=== PATIENT | female | born 2000 | race Caucasian/White ===

== ENCOUNTER 2019-05-01 03:36 | Inpatient (IN) ==
[2019-05-04] MEDS ORDERED: OXYTOCIN/DEXTROSE 5%-WATER 30 UNITS/500 ML BAG IV ONE (00:34)
[2019-05-04] MEDS ORDERED: ONDANSETRON 4 MG TAB.RAPDIS PO PRN (00:34)
--- NOTE | 2019-05-04 01:06 | HP ---
Chief Complaint - Chief Complaint Date of Service: 05/04/19 Time of Service: 00:55 Chief Complaint: elective induction of labor History of Present Illness: 19 yo at 40 1/7 weeks admitted for elective induction of labor. This complicated by anemia, THC use, smoker, and insufficient PNC. Rh positive Rubella immune GBS negative Medical History (Last Reviewed 05/04/19 @ 00:58 by Missael Trimble DO) Tobacco abuse (Chronic) Anemia Onset Date: 06/14/17 w/ Body piercing Onset Date: Unknown Dysmenorrhea Onset Date: 06/13/12 Hirsuties Onset Date: 06/13/12 Grade 1, Minor Tattoos Onset Date: Unknown Hemorrhoids Onset Date: ~2017 Scoliosis Onset Date: Unknown UTI (urinary tract infection), uncomplicated Onset Date: 04/12/17 Surgical History: Surgical History (Last Reviewed 05/04/19 @ 00:58 by Missael Trimble DO) History of tonsillectomy Onset Date: ~11/2011 [place] teeth extracted Onset Date: Unknown Family History: Family History (Last Reviewed 05/04/19 @ 00:58 by Missael Trimble DO) Mother Asthma RA (rheumatoid arthritis) Grandfather COPD (chronic obstructive pulmonary disease) Maternal Grandmother Diabetes maternal Hypertension maternal Hyperlipemia maternal Social History: (Last Updated 04/28/19 @ 13:30 by Missael Trimble DO) Social History: adopted: No Marital status: Single household members: family number of children: 1 current occupational status: employed current occupation: [employer] current occupational exposures/hazards: No Highest education level completed: 11th grade Sexually Active: Yes Service: No Tobacco: Smoking Status: Current every day smoker tobacco type: cigarettes Smoking cigarettes per day: 7 Alcohol: alcohol intake: current alcohol intake frequency: holiday/special occasion details: No alcohol since + UPT Substance Use: substance use type: marijuana Dietary Habits: caffeine: Yes caffeine comment: 1-2/day Exercise: Physical activity type: none frequency: does not exercise Daly/[facility]: agree to transfusion: Yes Review Of Systems (GEN) - Review of Systems Generalized/Overall Review: Present: No Symptoms Reported EENTM: Present: No Symptoms Reported Respiratory: Present: No Symptoms Reported Cardiac: Present: No Symptoms Reported Abdominal: Present: Other - irregular contractions Genitourinary: Present: No Symptoms Reported Musculoskeletal: Present: No Symptoms Reported Neurological: Present: No Symptoms Reported Skin: Present: No Symptoms Reported Endocrine: Present: No Symptoms Reported Allergies/Adverse Reactions: Allergies Allergy/AdvReac Type Severity Reaction Status Date / Time No Known Allergies Allergy Verified 04/28/19 13:05 Home Medications: HOME MEDICATIONS Vits96/Iron Fum/Folic [ S] 1 cap PO DAILY 09/05/17 [Last Taken 05/03/19] Ferrous Sulfate [Iron] 325 mg PO DAILY 09/12/17 [Last Taken 05/03/19] ascorbic acid (vitamin C) 500 mg tablet 500 mg PO DAILY 11/28/18 [Last Taken 05/03/19] Exam - Exam Vital Signs: Vital Signs - Last Taken Temp 37.0 C 05/04/19 00:45 Pulse 102 H 05/04/19 00:45 Resp 16 05/04/19 00:45 BP 117/63 05/04/19 00:45 Pulse Ox 100 05/04/19 00:45 Constitutional: Present: Alert, Oriented x3, Cooperative, No distress ENT Exam: Present: hearing grossly normal Neck: Absent: thyromegaly Breasts: Present: Exam deferred Respiratory: Present: lungs clear, no respiratory distress Cardiovascular/Chest: Present: regular rate, rhythm Abdomen: Present: soft, nontender, no rebound tenderness, other - gravid /Rectal: Present: Other - cervix - 2/75/-2 Extremity: Present: no pedal edema, no calf tenderness Skin Exam: Present: normal color, warm/dry, no cyanosis Neurologic: Present: alert, normal mood/affect, oriented x 3 Appearance: Present: appropriate appearance, appropriate insight Eye contact: Present: cooperative, good eye contact Thoughts: Present: normal thought pattern, normal mood /affect Assessment/Plan - Assessment/Plan (1) Elective induction of labor planned Assessment: Admit for pitocin induction of labor. Epidural PRN. Problem: Acute (2) Anemia Problem: Acute Qualifiers: Anemia type: iron deficiency Iron deficiency anemia type: inadequate dietary iron intake Qualified Code(s): D50.8 - Other iron deficiency anemias (3) History of marijuana use Problem: Acute (4) Insufficient care Problem: Acute Qualifiers: Trimester: third trimester Qualified Code(s): O09.33 - Supervision of with insufficient care, third trimester (5) Tobacco abuse Problem: Chronic
[2019-05-04] MEDS: DEXTROSE 5%-LACTATED RINGERS 1,000 ML IV PRN ×2 (01:14→08:32)
[2019-05-04 02:08] LABS: Cocaine Ur Negative (NEGATIVE); Urine Barbiturate Negative (NEGATIVE); Urine Benzodiazepines Negative (NEGATIVE); Urine Opiates Negative (NEGATIVE); Urine PCP Negative (NEGATIVE)
[2019-05-04 02:11] LABS: Urine THC Positive (NEGATIVE)
--- NOTE | 2019-05-04 04:32 | PN ---
Progess Note - Interim Date: 05/04/19 Time: 04:31 Narrative: 05/04/19 04:31 Patient rating her contractions as mild to moderate. Vital signs stable. Pitocin at 2 mu/min. FHT: 130 baseline, reassuring contractions q 2-3 min Cervix: 3/80/-2, AROM-clear Impression: Intrauterine at 40 1/7 weeks, elective induction of labor. Plan: Continue present plan
[2019-05-04] MEDS: RINGER'S SOLUTION,LACTATED 1,000 ML IV ONE ×2 (07:21→14:30)
[2019-05-04] MEDS ORDERED: BUPIVACAINE HCL/0.9 % NACL/PF 250 ML EP PRN (07:35)
[2019-05-04] MEDS ORDERED: NALOXONE HCL 1 MG/1 ML SYRG IV PRN (07:35)
[2019-05-04] MEDS ORDERED: ONDANSETRON HCL/PF 2 MG/ML VIAL IV PRN ×2 (07:35→15:31)
[2019-05-04] MEDS ORDERED: BUPIVACAINE HCL/PF 30 ML VIAL EP SCH (07:45)
--- NOTE | 2019-05-04 07:56 | PN ---
Progess Note - Interim Date: 05/04/19 Time: 07:40 Narrative: 05/04/19 07:40 Pt had spontaneous deceleration for 11 minutes with a 3 min toñito in the 60's and a few sporadic 10-15 sec returns to baseline. Pitocin at 2 mu/min was turned off within 1st 1.5 min. In addition, position changes were made, IV fluid bolus and O2 were given, and internals were placed. FHT now 120 bpm with moderate variability, accelerations, and occasional mild variable decelerations with contractions. Cervix 5/80/-2 Contractions irreg 1-4 min with most 2-3 min apart. IMPRESSION: 40 1/7 wk IUP in active labor with possible intermittently compressed cord. PLAN: OR crew called in on standby. Patient requesting epidural. Patient counseled on possibility of c/s. R/b/a discussed.
--- NOTE | 2019-05-04 08:03 | ANES ---
Anesthesia Pre Procedure Eval Vitals/Labs: Last Vital Signs Temp 37.0 C 05/04/19 00:45 Pulse 102 H 05/04/19 00:45 Resp 16 05/04/19 00:45 BP 117/63 05/04/19 00:45 Pulse Ox 100 05/04/19 00:45 HOME MEDICATIONS Vits96/Iron Fum/Folic [ S] 1 cap PO DAILY 09/05/17 [Last Taken 05/03/19] Ferrous Sulfate [Iron] 325 mg PO DAILY 09/12/17 [Last Taken 05/03/19] ascorbic acid (vitamin C) 500 mg tablet 500 mg PO DAILY 11/28/18 [Last Taken 05/03/19] Allergies/Adverse Reactions: Allergies Allergy/AdvReac Type Severity Reaction Status Date / Time No Known Allergies Allergy Verified 04/28/19 13:05 - Planned Procedure Planned Procedure: Labor epidural Medication List Reviewed:: Yes Allergies Verified: Yes Medical History (Last Reviewed 05/04/19 @ 08:03 by Ignacio Soto CRNA) Tobacco abuse (Chronic) Anemia Onset Date: 06/14/17 w/ Body piercing Onset Date: Unknown Dysmenorrhea Onset Date: 06/13/12 Hirsuties Onset Date: 06/13/12 Grade 1, Minor Tattoos Onset Date: Unknown Hemorrhoids Onset Date: ~2017 Scoliosis Onset Date: Unknown UTI (urinary tract infection), uncomplicated Onset Date: 04/12/17 Surgical History (Last Reviewed 05/04/19 @ 08:03 by Ignacio Soto CRNA) History of tonsillectomy Onset Date: ~11/2011 [place] teeth extracted Onset Date: Unknown Family History (Last Reviewed 05/04/19 @ 08:03 by Ignacio Soto CRNA) Mother Asthma RA (rheumatoid arthritis) Grandfather COPD (chronic obstructive pulmonary disease) Maternal Grandmother Diabetes maternal Hypertension maternal Hyperlipemia maternal - Anesthesia Assessment and Plan ASA Class: PS, II Anesthesia Type Plan: Epidural
--- NOTE | 2019-05-04 08:24 | ANES ---
Anesthesia Procedure Note Procedure Note: ANESTHESIA PROCEDURE NOTE Date of Procedure: 05/04/2019. Time of procedure: 804. Performed by: Ignacio Soto CRNA Wax Pumper: None. Preprocedure diagnosis: Active labor. Post procedure diagnosis: Same. Procedure: Insertion of labor epidural. Indications: The patient is a 19-year-old female in active labor requesting labor epidural for pain management. Findings: See below. Details of the procedure: The patient was placed in a sitting position. DuraPrep as well as Betadine swabs X3 was applied to the patient's back. Patient was then draped in a sterile fashion. Lidocaine 1% was infiltrated to the skin and subcutaneous tissues at the level of the L3-4 interspace. The epidural space was identified using a 18-gauge Tuohy needle with [id number] technique. Epidural catheter was inserted to a depth of 11 centimeters at skin. Negative test dose was elicited using 3 mL of 1.5% preservative-free lidocaine plus epinephrine 1 200,000. The epidural catheter was then taped and secured in place. A loading dose of 8 mL of 0.25% preservative-free bupivacaine was administered to the epidural catheter after negative aspiration for blood and CSF. EBL: Minimal. Fluids: N/A. Specimen: N/A. Post procedure condition: The patient tolerated the procedure well. No complications were noted. Thank you for this consultation. Ignacio Soto CRNA
--- NOTE | 2019-05-04 08:26 | ANES ---
Post Anesthesia Assessment - Vital Signs Vitals: Last Vital Signs Temp 35.8 C L 05/04/19 08:25 Pulse 75 05/04/19 08:25 Resp 18 05/04/19 08:25 BP 125/85 05/04/19 08:25 Pulse Ox 98 05/04/19 08:25 Airway Patency: Normal - Mental Status Level Of Consciousness: Awake - N/V Assessment Nausea/Vomiting Presence: None Dehydration:: No
[2019-05-04] MEDS ORDERED: TERBUTALINE SULFATE 1 MG/ML VIAL ONE (13:59)
[2019-05-04] MEDS ORDERED: LIDOCAINE HCL/EPINEPHRINE 20 ML VIAL ONE (14:08)
[2019-05-04] MEDS ORDERED: ONDANSETRON HCL/PF 2 MG/ML VIAL ONE (14:08)
[2019-05-04] MEDS ORDERED: SODIUM BICARBONATE 1 MEQ/ML SYRG ONE (14:08)
[2019-05-04] MEDS ORDERED: BUPIVACAINE HCL/EPINEPHRINE 50 ML VIAL ONE (14:09)
[2019-05-04] MEDS ORDERED: ceFAZolin SODIUM 1 GM VIAL IV ONE ×2 (14:10)
[2019-05-04] MEDS ORDERED: ceFAZolin SODIUM 1 GM VIAL ONE (14:12)
[2019-05-04] MEDS ORDERED: ceFAZolin SODIUM/DEXTROSE,ISO 2 GM/50 ML BAG IV ONE (14:18)
[2019-05-04] MEDS ORDERED: OXYTOCIN 20 UNITS in RINGER'S SOLUTION,LACTATED 1,000 ML IV ONE (14:19)
[2019-05-04] MEDS ORDERED: NEOSTIGMINE METHYLSULFATE 1 MG/ML VIAL ONE (14:39)
[2019-05-04] MEDS ORDERED: fentaNYL CITRATE/PF 50 MCG/ML AMPUL ONE (14:39)
[2019-05-04] MEDS ORDERED: GLYCOPYRROLATE 0.2 MG/ML VIAL ONE (14:40)
--- NOTE | 2019-05-04 14:52 | ANES ---
Anesthesia Pre Procedure Eval Vitals/Labs: Last Vital Signs Temp 35.8 C L 05/04/19 08:25 Pulse 75 05/04/19 08:25 Resp 18 05/04/19 08:25 BP 125/85 05/04/19 08:25 Pulse Ox 98 05/04/19 08:25 HOME MEDICATIONS Vits96/Iron Fum/Folic [ S] 1 cap PO DAILY 09/05/17 [Last Taken 05/03/19] Ferrous Sulfate [Iron] 325 mg PO DAILY 09/12/17 [Last Taken 05/03/19] ascorbic acid (vitamin C) 500 mg tablet 500 mg PO DAILY 11/28/18 [Last Taken 05/03/19] Ibuprofen [Motrin] 200 - 800 mg PO Q6H PRN #100 tab 05/04/19 [Last Taken Unknown] Allergies/Adverse Reactions: Allergies Allergy/AdvReac Type Severity Reaction Status Date / Time No Known Allergies Allergy Verified 04/28/19 13:05 - Planned Procedure Planned Procedure: C/S Medication List Reviewed:: Yes Allergies Verified: Yes Medical History (Last Reviewed 05/04/19 @ 14:51 by Ignacio Soto CRNA) Tobacco abuse (Chronic) Anemia Onset Date: 06/14/17 w/ Body piercing Onset Date: Unknown Dysmenorrhea Onset Date: 06/13/12 Hirsuties Onset Date: 06/13/12 Grade 1, Minor Tattoos Onset Date: Unknown Hemorrhoids Onset Date: ~2017 Scoliosis Onset Date: Unknown UTI (urinary tract infection), uncomplicated Onset Date: 04/12/17 Surgical History (Last Reviewed 05/04/19 @ 14:51 by Ignacio Soto CRNA) History of tonsillectomy Onset Date: ~11/2011 [place] teeth extracted Onset Date: Unknown Family History (Last Reviewed 05/04/19 @ 14:51 by Ignacio Soto CRNA) Mother Asthma RA (rheumatoid arthritis) Grandfather COPD (chronic obstructive pulmonary disease) Maternal Grandmother Diabetes maternal Hypertension maternal Hyperlipemia maternal - Family Anesthesia History Family History:: no untoward family reactions to anesthesia, no familial bleeding tendencies, no family history of clotting disorders, no family history of premature - Airway/Neck/Teeth Within Normal Limits:: Yes Teeth Condition: intact Mallampatti Score: 2 Thyromental (T-M) distance: > 6 cm Mandibulo Hyoid distance: > 3 cm - Respiratory Discussed smoking cessation including day of surgery: No Sleep Apnea currently treated: No Sleep Apnea by current assessment: No Discussed Risks/Treatment of JAZMIN: No - Gastrointestinal NPO since: [place] - Anesthesia Assessment and Plan ASA Class: PS, II, E Anesthesia Type Plan: Block - Bilateral TAP blocks for postop analgesia, Epidural
[2019-05-04] MEDS ORDERED: BUPIVACAINE HCL/EPINEPHRINE 50 ML VIAL IJ ONE (15:03)
[2019-05-04] MEDS ORDERED: BISACODYL 10 MG SUPP.RECT RC PRN (15:31)
[2019-05-04] MEDS ORDERED: SIMETHICONE 80 MG TAB.CHEW PO PRN (15:31)
[2019-05-04] MEDS ORDERED: SENNOSIDES 8.6 MG TABLET PO PRN (15:31)
[2019-05-04] MEDS ORDERED: SUCCINYLCHOLINE CHLORIDE 20 MG/ML VIAL ONE (15:39)
[2019-05-04] MEDS ORDERED: ROCURONIUM BROMIDE 10 MG/ML VIAL ONE (15:39)
--- NOTE | 2019-05-04 15:45 | ANES ---
Post Anesthesia Discharge - Transfer of Care Transfer of Care handoff given to nurse: Yes - Discharge from PACU Discharge from PACU when meets criteria: Yes - Discharge to ASU Discharge to ASU-no complications/pt stable: Yes
--- NOTE | 2019-05-04 15:47 | ANES ---
Anesthesia Procedure Note Procedure Note: ANESTHESIA PROCEDURE NOTE Date of Procedure: 05/04/2019. Time of procedure: 1530. Performed by: Ignacio Soto CRNA Manager Audit: None. Preprocedure diagnosis: . Post procedure diagnosis: Same. Procedure: Bilateral ultrasound-guided transversus abdominis plane block for postop analgesia. Indications: The patient is a 19-year-old female post section. Findings: See below. Details of the procedure: ChloraPrep was used on the patient's abdomen and the procedure was performed under sterile technique. The right abdominal fascial layer between the internal oblique muscle and the transversus abdominis muscles was identified under ultrasound guidance. A 21-gauge 4 inch block needle was inserted under ultrasound guidance to the target fascial plane. 15 mL's of 0.25% bupivacaine plus epinephrine 1:200,000 was injected after negative aspiration for blood. The needle was removed intact and the procedure was then repeated at the left side. No complications were noted. The images were retained in the hospital medical database. EBL: Minimal. Fluids: N/A. Specimen: N/A. Post procedure condition: The patient tolerated the procedure well. No complications were noted. Thank you for this consultation. Ignacio Soto CRNA
--- NOTE | 2019-05-04 15:47 | ANES ---
Post Anesthesia Assessment - Vital Signs Vitals: Last Vital Signs Temp 36.8 C 05/04/19 15:25 Pulse 932 H 05/04/19 15:45 Resp 25 H 05/04/19 15:45 BP 120/65 05/04/19 15:45 Pulse Ox 98 05/04/19 15:45 Airway Patency: Normal - Mental Status Level Of Consciousness: Awake - Pain Level Pain Score: 0 - N/V Assessment Nausea/Vomiting Presence: None Dehydration:: No
--- NOTE | 2019-05-04 15:48 | OR ---
Operative Report - Dictated Report Narrative: Indication: 19-year-old 2 para 1 at 40-1/7 weeks was admitted for elective induction of labor. She had an 11-minute deceleration into the 60s early this morning. The baby seemed to recover well until this most recent episode of another deceleration down to the 60s. Her labor had stalled at 8 cm for over 4 hours and with the second deceleration a STAT c/s was called at 1359. By the time we arrived in the OR and were set up ready to go for section the heart tones were improviing and back into the 120s. So the section was downgraded to routine at 1411. Patient was reexamined and noted to still be at 8 cm. For this reason we proceeded with primary low transverse section due to arrest of dilation. Status: Called a stat at 1359, downgraded to routine at 1411 Pre Operative Diagnosis: Nonreassuring tracing, arrest of dilation. Post Operative Diagnosis: Same. Procedure Preformed: Primary Low Transverse Section Surgeon: Litzy Trimble DO Aircraft Structural Design Engineer: OR Staff Anesthesia: Epidural converted to general due to an adequate pain relief,TAP block Estimated Blood Loss: 700 mL Urine Output: 200 mL of clear urine Fluids Given: 1200 mL of crystalloid Drains: Andrea to gravity Surgical Complications: None Specimens: Placenta to pathology Findings: Female born at 1438 on 05/04/2021 with Apgars 9 and 9, weighing 3377 g in cephalic presentation. Unable to determine etiology of prolonged decelerations. Normal uterus, tubes, ovaries. Technique: The patient was taken to the operating room and placed in dorsal supine position with a left lateral tilt. After adequate epidural anesthesia, andrea catheter insertion,SCDs placed, and 2 g of Ancef given preoperatively, the abdominal cavity was entered via a modified Blake-Qureshi incision. Upon entering the abdominal cavity patient had severe pain on the left side so the surgery was held until general anesthesia was obtained. Two rolled laps were placed in the pericolic gutters on either side of the uterus. A transverse incision was made in the lower uterine segment and extended laterally and upwardly with digital traction. Clear fluid was noted upon amniotomy. The was delivered easily and vigorously crying on the perineum. After approximately 30 seconds, the cord was clamped and cut and was handed off to awaiting applications engineer. The placenta was allowed to deliver spontaneously. The uterus was cleared of clot and debris. Uterine incision was closed with 0 Vicryl using a running stitch. A second imbricating layer was placed. Excellent hemostasis was noted. Rolled laps were removed from the abdominal cavitiy. The peritoneum was closed with a running 3-0 Monocryl. The same suture was used to approximate the rectus and pyramidalis muscles. The fascia was closed with a running 0 Vicryl. The subcutaneous layer was closed with a running 3-0 Monocryl. The same suture was used to approximate the subdermal layer. The skin was closed with a running 4-0 Monocryl and Dermabond. Sponge, lap, needle, and instrument count were correct x 2. Disposition: The patient was transferred to post anesthesia care unit in good condition History for MU History for Definition: * The number of deliveries resulting in a live the patient experienced prior to current hospitalization * The previous delivery of live twins or any live multiple gestation is considered one live event. *If primagravida or nulliparous is documented select zero for the number of previous live births. Live Events: Live Events: 1
[2019-05-04] MEDS: IBUPROFEN 800 MG TABLET PO PRN ×2 (16:00→21:46)
[2019-05-04] MEDS: oxyCODONE HCL/ACETAMINOPHEN 1 TAB TABLET PO PRN ×2 (16:00→18:57)
[2019-05-04] MEDS: DOCUSATE SODIUM 100 MG CAPSULE PO SCH (21:46)
[2019-05-04] MEDS: ENOXAPARIN SODIUM 40 MG/0.4 ML SYRG SC SCH (23:47)
[2019-05-05] MEDS: oxyCODONE HCL/ACETAMINOPHEN 1 TAB TABLET PO PRN ×5 (00:55→21:38)
[2019-05-05] MEDS: IBUPROFEN 800 MG TABLET PO PRN ×3 (04:29→18:14)
--- NOTE | 2019-05-05 09:02 | PN ---
Subjective - Date and Time Seen Date: 05/05/19 Time: 09:01 Objective - Vitals Vitals: Last Vital Signs Temp 37.0 C 05/05/19 03:17 Pulse 68 05/05/19 03:17 Resp 20 05/05/19 03:17 BP 109/61 05/05/19 03:17 Pulse Ox 96 05/05/19 03:17 Patient denies complaints. Tolerating regular diet. Ambulating without difficulty. Pain well controlled. Lochia wnl. Abdomen - soft, appropriately tender Incision -clean, dry, intact uterus - firm, at umbilicus -1 no calf tenderness Impression: Post op day #1 s/p primary section for arrest of dilation and nonreassuring heart tracing. Smoker Plan: Continue routine post-operative/ care Cauti Physician Documentation - Urinary Catheter Management Urethral ([place]) Date of Insertion: 05/04/19 Time of Insertion: 08:40 Assessment/Plan - Problems/Diagnosis (1) Elective induction of labor planned Problem: Acute (2) Anemia Problem: Acute Qualifiers: Anemia type: iron deficiency Iron deficiency anemia type: inadequate dietary iron intake Qualified Code(s): D50.8 - Other iron deficiency anemias (3) History of marijuana use Problem: Acute (4) Insufficient care Problem: Acute Qualifiers: Trimester: third trimester Qualified Code(s): O09.33 - Supervision of with insufficient care, third trimester (5) Tobacco abuse Problem: Chronic
[2019-05-05] MEDS: FERROUS SULFATE 325 MG TABLET PO SCH (10:54)
[2019-05-05] MEDS: PRENATAL VITS96/IRON FUM/FOLIC 1 TAB TABLET PO SCH (10:54)
[2019-05-05] MEDS: DOCUSATE SODIUM 100 MG CAPSULE PO SCH ×2 (10:54→21:38)
[2019-05-05] MEDS: ASCORBIC ACID 500 MG TABLET PO SCH (10:58)
[2019-05-05] MEDS: ENOXAPARIN SODIUM 40 MG/0.4 ML SYRG SC SCH (23:16)
[2019-05-06] MEDS: oxyCODONE HCL/ACETAMINOPHEN 1 TAB TABLET PO PRN ×4 (02:25→22:08)
[2019-05-06] MEDS: IBUPROFEN 800 MG TABLET PO PRN ×4 (02:25→22:08)
--- NOTE | 2019-05-06 08:41 | PN ---
Subjective - Date and Time Seen Date: 05/06/19 Time: 08:39 Subjective Narrative: Patient without complaints Objective Objective Narrative: See vital signs - Review of Systems Generalized/Overall Review: Reports: No Symptoms Reported Misc: All systems neg except as marked - Vitals Vitals: Last Vital Signs Temp 36.1 C 05/06/19 07:25 Pulse 77 05/06/19 07:25 Resp 18 05/06/19 07:25 BP 112/65 05/06/19 07:25 Pulse Ox 99 05/06/19 07:25 - Exam Constitutional: Present: Alert, Oriented x3, Cooperative, No distress Abdomen: Present: soft, nontender, nondistended - incision c/d/i Extremity: Present: non-tender, no calf tenderness Skin Exam: Present: normal color, warm/dry, no cyanosis Appearance: Present: appropriate appearance Eye contact: Present: cooperative Thoughts: Present: normal thought pattern Cauti Physician Documentation - Urinary Catheter Management Urethral ([place]) Urethral Indwelling: No Date of Insertion: 05/04/19 Time of Insertion: 08:40 Assessment/Plan Plan Narrative: POD 2 s/p primary delivery Doing well Discharge home tomorrow
[2019-05-06] MEDS: FERROUS SULFATE 325 MG TABLET PO SCH (10:04)
[2019-05-06] MEDS: ASCORBIC ACID 500 MG TABLET PO SCH (10:04)
[2019-05-06] MEDS: DOCUSATE SODIUM 100 MG CAPSULE PO SCH ×2 (10:05→22:08)
[2019-05-06] MEDS: PRENATAL VITS96/IRON FUM/FOLIC 1 TAB TABLET PO SCH (10:05)
[2019-05-06] MEDS: ENOXAPARIN SODIUM 40 MG/0.4 ML SYRG SC SCH (23:14)
[2019-05-07] MEDS: DOCUSATE SODIUM 100 MG CAPSULE PO SCH ×2 (07:54→09:09)
[2019-05-07] MEDS: ASCORBIC ACID 500 MG TABLET PO SCH ×2 (07:54→09:09)
[2019-05-07] MEDS: PRENATAL VITS96/IRON FUM/FOLIC 1 TAB TABLET PO SCH ×2 (07:54→09:09)
[2019-05-07] MEDS: oxyCODONE HCL/ACETAMINOPHEN 1 TAB TABLET PO PRN (07:54)
[2019-05-07] MEDS: IBUPROFEN 800 MG TABLET PO PRN (07:54)
[2019-05-07] MEDS: FERROUS SULFATE 325 MG TABLET PO SCH ×2 (07:54→09:09)
--- NOTE | 2019-05-07 08:41 | PN ---
Subjective - Date and Time Seen Date: 05/07/19 Time: 08:40 Subjective Narrative: Patient without complaints Objective Objective Narrative: See vital signs - Review of Systems Generalized/Overall Review: Reports: No Symptoms Reported Misc: All systems neg except as marked - Vitals Vitals: Last Vital Signs Temp 36.7 C 05/06/19 15:35 Pulse 62 05/07/19 01:32 Resp 16 05/07/19 01:32 BP 110/66 05/07/19 01:32 Pulse Ox 100 05/07/19 01:32 - Exam Constitutional: Present: Alert, Oriented x3, Cooperative, No distress ENT Exam: Present: hearing grossly normal Abdomen: Present: soft, nontender, nondistended - incision c/d/i Extremity: Present: non-tender, no calf tenderness Skin Exam: Present: normal color, warm/dry, no cyanosis Appearance: Present: appropriate appearance Eye contact: Present: cooperative Thoughts: Present: normal thought pattern Cauti Physician Documentation - Urinary Catheter Management Urethral ([place]) Urethral Indwelling: No Date of Insertion: 05/04/19 Time of Insertion: 08:40 Assessment/Plan Plan Narrative: POD 3 s/p repeat delivery Doing well Discharge today Follow-up in 2 weeks for an incision check or sooner for any other concerns
[2019-05-07 09:42] VITALS: BP 115/66
== END 2019-05-07 10:55 | disposition home or self-care (01) | DRG 787 ==
LOC: OB 05-04 00:28
PROVIDERS: ADMIT Obstetrics & Gynecology; ATTEND Obstetrics & Gynecology
CPT/HCPCS: 59025; 80307; 88307; J2405

== ENCOUNTER 2020-08-04 05:01 | Inpatient (IN) ==
[2020-08-04] MEDS: RINGER'S SOLUTION,LACTATED 1,000 ML IV PRN ×3 (05:30→08:27)
[2020-08-04] MEDS ORDERED: OXYTOCIN/0.9 % SODIUM CHLORIDE 30 UNITS/500 ML BAG IV ONE (05:52)
[2020-08-04 06:00] LABS: Cocaine Ur Negative (NEGATIVE); Urine Barbiturate Negative (NEGATIVE); Urine Benzodiazepines Negative (NEGATIVE); Urine Opiates Negative (NEGATIVE); Urine PCP Negative (NEGATIVE)
[2020-08-04 06:17] LABS: Urine THC Negative (NEGATIVE)
[2020-08-04] MEDS ORDERED: EPINEPHrine 1 MG/ML AMPUL ONE (07:01)
[2020-08-04] MEDS ORDERED: NORMAL SALINE 20 ML VIAL ONE (07:01)
[2020-08-04] MEDS ORDERED: BUPIVACAINE HCL/EPINEPHRINE 50 ML VIAL IJ ONE (07:01)
[2020-08-04] MEDS ORDERED: ceFAZolin SODIUM 1 GM VIAL ONE (07:05)
--- NOTE | 2020-08-04 07:29 | ANES ---
Anesthesia Pre Procedure Eval Vitals/Labs: Last Vital Signs Temp 36.7 C 08/04/20 06:01 Pulse 90 08/04/20 06:01 Resp 18 08/04/20 06:01 BP 116/69 08/04/20 06:01 Pulse Ox 98 08/04/20 06:01 HOME MEDICATIONS Vits96/Iron Fum/Folic [ S] 1 cap PO DAILY 09/05/17 [Last Taken 05/03/19] Ferrous Sulfate [Iron] 325 mg PO DAILY 09/12/17 [Last Taken 05/03/19] ascorbic acid (vitamin C) 500 mg tablet 500 mg PO DAILY 11/28/18 [Last Taken 05/03/19] Allergies/Adverse Reactions: Allergies Allergy/AdvReac Type Severity Reaction Status Date / Time No Known Allergies Allergy Verified 08/04/20 05:26 - Planned Procedure Planned Procedure: Section with possible abdominal scar revi Medication List Reviewed:: Yes Allergies Verified: Yes Medical History (Last Reviewed 08/04/20 @ 07:28 by Chaparro Grider CRNA) History of marijuana use (Inactive) Tobacco abuse (Resolved) Anemia Onset Date: 06/14/17 w/ Body piercing Onset Date: Unknown Dysmenorrhea Onset Date: 06/13/12 Hirsuties Onset Date: 06/13/12 Grade 1, Minor Tattoos Onset Date: Unknown Hemorrhoids Onset Date: ~2017 Scoliosis Onset Date: Unknown UTI (urinary tract infection), uncomplicated Onset Date: 04/12/17 Surgical History (Last Reviewed 08/04/20 @ 07:28 by Chaparro Grider CRNA) Previous section (Chronic) History of primary section Onset Date: 05/04/19 History of tonsillectomy Onset Date: ~11/2011 [place] teeth extracted Onset Date: Unknown Family History (Last Reviewed 08/04/20 @ 07:28 by Chaparro Grider CRNA) Mother Asthma RA (rheumatoid arthritis) Grandfather COPD (chronic obstructive pulmonary disease) Maternal Grandmother Diabetes maternal Hypertension maternal Hyperlipemia maternal - Family Anesthesia History Family History:: no untoward family reactions to anesthesia - Airway/Neck/Teeth Within Normal Limits:: Yes Teeth Condition: intact Neck Exam: full range of motion Mallampatti Score: 2 Thyromental (T-M) distance: > 6 cm Mandibulo Hyoid distance: > 3 cm - Respiratory Respiratory Physical: lungs clear Smoking Status: Current every day smoker Discussed smoking cessation including day of surgery: Yes Sleep Apnea currently treated: No Sleep Apnea by current assessment: No - Cardiovascular Tolerate Activity: Good Heart Sounds: S1 & S2, Regular - Gastrointestinal NPO since: [place] - Anesthesia Assessment and Plan ASA Class: PS, II Anesthesia Type Plan: Spinal - bilat tap block Planned difficult intubation/equipment available: No
[2020-08-04] MEDS ORDERED: LIDOCAINE HCL 50 ML VIAL ONE (07:54)
[2020-08-04] MEDS ORDERED: ONDANSETRON HCL/PF 2 MG/ML VIAL ONE (08:51)
[2020-08-04] MEDS ORDERED: fentaNYL CITRATE/PF 50 MCG/ML AMPUL ONE (08:55)
[2020-08-04] MEDS ORDERED: SIMETHICONE 80 MG TAB.CHEW PO PRN (09:28)
[2020-08-04] MEDS ORDERED: SENNOSIDES 8.6 MG TABLET PO PRN (09:28)
[2020-08-04] MEDS ORDERED: ONDANSETRON HCL/PF 2 MG/ML VIAL IV PRN (09:28)
[2020-08-04] MEDS ORDERED: BISACODYL 10 MG SUPP.RECT RC PRN (09:28)
--- NOTE | 2020-08-04 09:35 | OR ---
Operative Report - Dictated Report Narrative: Indication: 20-year-old 2 para 1 with prior section desires repeat low transverse section. status: Planned Pre Operative Diagnosis: Intrauterine at 39-3/7 weeks. Prior section. Early labor. Post Operative Diagnosis: Same. Procedure: Repeat low transverse section. Surgeon: Litzy Trimble DO Sewing Pattern Layout Technician: OR Staff Anesthesia: Spinal, TAP block Estimated Blood Loss: 200 mL Urine Output: 125 mL clear urine Fluids Replacement: 2050 mL of crystalloid Drains: Andrea to gravity Surgical Complications: None Specimens: Placenta to freezer Findings: Female born at 0818 on 08/04/2022 with Apgars 9 and 9, weighing 3559 g in cephalic presentation. Over 1700 mL of clear amniotic fluid. Normal uterus, tubes, ovaries Technique: The patient was taken to the operating room and placed in dorsal supine position with a left lateral tilt. After adequate spinal anesthesia, andrea catheter inserted, SCDs placed, and 2 g of Ancef given preoperatively, the abdominal cavity was entered using sharp and blunt dissection. Two rolled laps were placed in the pericolic gutters on either side of the uterus. A transverse incision was made in the lower uterine segment and extended laterally and upwardly with digital traction. Clear fluid was noted upon amniotomy. The was delivered easily. After approximately 45 seconds, the cord was clamped and cut and infant was handed off to awaiting home help aide. The placenta was allowed to deliver spontaneously. The uterus was cleared of clot and debris. Uterine incision was closed with 0 Vicryl using a running stitch. A second imbricating layer was placed. Bleeding in the left corner was controlled with 3 [id number] 0 Vicryl sutures. Excellent hemostasis was noted. The rolled laps were removed from the abdominal cavitiy. The peritoneum was closed with a running 3-0 Monocryl. The same suture was used to approximate the rectus and pyramidalis muscles. The fascia was closed with a running 0 Vicryl. The subcutaneous layer was closed with a running 3-0 Monocryl. The same suture was used to approximate the subdermal layer. The skin was closed with a running 4-0 Monocryl and Dermabond. Sponge, lap, needle, and instrument count were correct x 2. Disposition: To post anesthesia care unit in good condition History for MU History for MU Definition: * The number of deliveries resulting in a live the patient experienced prior to current hospitalization * The previous delivery of live twins or any live multiple gestation is considered one live event. *If primagravida or nulliparous is documented select zero for the number of previous live births. Live Events: Live Events: 1
--- NOTE | 2020-08-04 09:45 | ANES ---
Post Anesthesia Discharge - Transfer of Care Transfer of Care handoff given to nurse: Yes - Discharge from PACU Discharge from PACU when meets criteria: Yes
[2020-08-04] MEDS: IBUPROFEN 800 MG TABLET PO PRN ×2 (10:43→18:43)
[2020-08-04] MEDS: oxyCODONE HCL/ACETAMINOPHEN 1 TAB TABLET PO PRN ×4 (10:43→21:54)
--- NOTE | 2020-08-04 12:07 | ANES ---
Post Anesthesia Assessment - Vital Signs Vitals: Last Vital Signs Temp 36.4 C 08/04/20 11:57 Pulse 67 08/04/20 11:57 Resp 20 08/04/20 11:00 BP 119/70 08/04/20 11:57 Pulse Ox 100 08/04/20 11:57 Airway Patency: Normal - Mental Status Level Of Consciousness: Awake - Pain Level Pain Score: 3 - N/V Assessment Nausea/Vomiting Presence: None Dehydration:: No
--- NOTE | 2020-08-04 13:56 | ANES ---
Anesthesia Procedure Note Procedure Note: ANESTHESIA PROCEDURE NOTE Date of procedure: 08/04/2020. Time of procedure: 01 13. Performed by: Cezar Grider CRNA Behavioral Geneticist: Nelda Deutsch RN . Preprocedure diagnosis: Status post section. Post procedure diagnosis: Same. Procedure: Ultrasound-guided bilateral tap block Indications: Post operative analgesia. Findings: Patient was placed in a supine position in the PACU. Patient's right abdominal wall was prepped with ChloraPrep. Ultrasound utilized to identify the fascial layer between the internal oblique and transabdominus muscles. A 20- gauge 4 inch regional block needle was advanced under ultrasound guidance till tip of needle was placed just distally to fascial layer. 20 mL of 0.25% Marcaine with epinephrine 1-200,000 was injected with adequate spread of local anesthesia noted. Procedure was then repeated on the patient's left side EBL: Minimal. Fluids: N/A. Specimen: N/A. Post procedure condition: The patient tolerated the procedure well. No complications were noted. Thank you for this consultation Cezar Grider CRNA
[2020-08-04] MEDS: ENOXAPARIN SODIUM 40 MG/0.4 ML SYRG SC SCH (17:34)
[2020-08-04] MEDS: DOCUSATE SODIUM 100 MG CAPSULE PO SCH (20:39)
[2020-08-05] MEDS: oxyCODONE HCL/ACETAMINOPHEN 1 TAB TABLET PO PRN ×5 (01:01→21:42)
[2020-08-05] MEDS: IBUPROFEN 800 MG TABLET PO PRN ×4 (01:01→21:42)
[2020-08-05] MEDS ORDERED: ceFAZolin SODIUM 1 GM VIAL IV PRN (06:00)
[2020-08-05] MEDS: DOCUSATE SODIUM 100 MG CAPSULE PO SCH ×2 (07:59→21:42)
--- NOTE | 2020-08-05 09:11 | PN ---
Subjective - Date and Time Seen Date: 08/05/20 Time: 09:10 Objective - Vitals Vitals: Last Vital Signs Temp 37 C 08/05/20 07:50 Pulse 73 08/05/20 07:50 Resp 18 08/05/20 07:50 BP 126/67 08/05/20 07:50 Pulse Ox 100 08/05/20 07:50 Patient denies complaints. Tolerating regular diet. Ambulating without difficulty. Pain well controlled. Lochia wnl. Abdomen - soft, appropriately tender Incision -clean, dry, intact uterus - firm, at umbilicus -1 No calf tenderness Impression: Post op day #1 s/p repeat section. Plan: Continue routine post-operative/ care Cauti Physician Documentation - Urinary Catheter Management Urethral ([place]) Date of Insertion: 08/04/20 Time of Insertion: 08:00 Date of Removal: 08/04/20 Time of Removal: 21:57
[2020-08-05] MEDS: FERROUS SULFATE 325 MG TABLET PO SCH (11:30)
[2020-08-05] MEDS: PRENATAL VITS96/IRON FUM/FOLIC 1 TAB TABLET PO SCH (11:30)
[2020-08-05] MEDS: ASCORBIC ACID 500 MG TABLET PO SCH (11:31)
[2020-08-05] MEDS: ENOXAPARIN SODIUM 40 MG/0.4 ML SYRG SC SCH (17:20)
[2020-08-06] MEDS: IBUPROFEN 800 MG TABLET PO PRN ×3 (04:25→19:13)
[2020-08-06] MEDS: oxyCODONE HCL/ACETAMINOPHEN 1 TAB TABLET PO PRN ×4 (04:25→23:11)
[2020-08-06] MEDS: PRENATAL VITS96/IRON FUM/FOLIC 1 TAB TABLET PO SCH (08:03)
[2020-08-06] MEDS: FERROUS SULFATE 325 MG TABLET PO SCH (08:03)
[2020-08-06] MEDS: DOCUSATE SODIUM 100 MG CAPSULE PO SCH ×2 (08:03→21:11)
[2020-08-06] MEDS: ASCORBIC ACID 500 MG TABLET PO SCH (08:03)
--- NOTE | 2020-08-06 15:40 | PN ---
Subjective - Date and Time Seen Date: 08/06/20 Time: 15:39 Objective - Vitals Vitals: Last Vital Signs Temp 36.8 C 08/06/20 12:29 Pulse 80 08/06/20 12:29 Resp 16 08/06/20 12:29 BP 115/74 08/06/20 12:29 Pulse Ox 95 08/06/20 12:29 Patient denies complaints. Ambulating well. Tolerating regular diet. Pain well controlled. Lochia wnl. Abdomen - soft, appropriately tender Incision -clean, dry, intact uterus - firm, at umbilicus -2 No calf tenderness Impression: Post op day #2 s/p repeat section. Plan: Continue routine post-operative/ care Cauti Physician Documentation - Urinary Catheter Management Urethral ([place]) Date of Insertion: 08/04/20 Time of Insertion: 08:00 Date of Removal: 08/04/20 Time of Removal: 21:57
[2020-08-06] MEDS: ENOXAPARIN SODIUM 40 MG/0.4 ML SYRG SC SCH (16:42)
[2020-08-07] MEDS: IBUPROFEN 800 MG TABLET PO PRN (06:44)
[2020-08-07] MEDS: oxyCODONE HCL/ACETAMINOPHEN 1 TAB TABLET PO PRN ×2 (06:44→10:31)
[2020-08-07 07:01] VITALS: BP 127/85
--- NOTE | 2020-08-07 10:27 | PN ---
Subjective - Date and Time Seen Date: 08/07/20 Time: 10:25 Objective - Vitals Vitals: Last Vital Signs Temp 37.2 C 08/07/20 06:57 Pulse 62 08/07/20 06:57 Resp 18 08/07/20 06:57 BP 127/85 08/07/20 06:57 Pulse Ox 98 08/07/20 06:57 Patient denies complaints. Breast-feeding well. Ambulating without difficulty. Tolerating regular diet. Pain well controlled. Lochia wnl. Abdomen - soft, appropriately tender Incision -clean, dry, intact uterus - firm, at umbilicus -3 No calf tenderness Impression: Post op day #3 s/p repeat section. Plan: Routine discharge instructions Cauti Physician Documentation - Urinary Catheter Management Urethral ([place]ett) Date of Insertion: 08/04/20 Time of Insertion: 08:00 Date of Removal: 08/04/20 Time of Removal: 21:57
[2020-08-07] MEDS: ASCORBIC ACID 500 MG TABLET PO SCH (10:29)
[2020-08-07] MEDS: PRENATAL VITS96/IRON FUM/FOLIC 1 TAB TABLET PO SCH (10:29)
[2020-08-07] MEDS: FERROUS SULFATE 325 MG TABLET PO SCH (10:29)
[2020-08-07] MEDS: DOCUSATE SODIUM 100 MG CAPSULE PO SCH (10:29)
--- NOTE | 2020-08-07 10:30 | DS ---
OB Discharge Summary Delivery Date: 08/04/20 Delivery Time: 08:18 :: 3 Para:: 3 Gestational weeks:: 39 Gestational days:: 3 Intrapartum Procedures: Delivered, Secondary Section, Delivery-Low Transverse Discharge Diagnosis: Term -Delivered - Discharge Information Date of Discharge: 08/07/20 Hospital Course: 20-year old 3 now para 3 admitted at 39-3/7 weeks for repeat low transverse section which went uneventfully. course was uneventful. Patient was discharged on postop day 3 with routine discharge instructions. Discharge Location: Home Disposition: Home self-care Condition: Good Activity on Discharge:: Activity as tolerated Discharge Diet: General/regular food Additional Patient Instructions (free text): Macy your follow up appointment is scheduled for September 08 @ 9:15AM with Dr Trimble. Brayan's follow up appointment is scheduled for 08/09/20 @ 2:00PM with Jaymie Agarwal. Her blood type is O+ Discharge weight Continue to breastfeed her at least every 2-[address] him on his back to sleep in his own bassinet or crib. No loose blankets, bumper pads, stuffed animals or pillows. Thank you for choosing [facility]. If you have any questions or concerns please don't hesitate to call us at [phone]. Prescriptions (Any new or edited meds): Ibuprofen [Motrin] 200 - 800 mg PO Q6H PRN #100 tab PRN Reason: Pain oxyCODONE HCL/ACETAMINOPHEN [Percocet 5 MG/325 MG] 1 tab PO Q4H PRN #10 tab PRN Reason: Moderate Pain Transmission Status: Received by [facility] #[id number] Complete Home Medications List: Complete Home Medication List: Vits96/Iron Fum/Folic [ S] 1 cap PO DAILY 09/05/17 Ferrous Sulfate [Iron] 325 mg PO DAILY 09/12/17 ascorbic acid (vitamin C) 500 mg tablet 500 mg PO DAILY 11/28/18 Ibuprofen [Motrin] 200 - 800 mg PO Q6H PRN #100 tab 08/05/20 oxyCODONE HCL/ACETAMINOPHEN [Percocet 5 MG/325 MG] 1 tab PO Q4H PRN #10 tab 08/05/20 - Plan Discharge to:: Home Follow up in office in:: 2 weeks - Information Weight (Grams): 3,559 Sex: Female Score 1 min: 9 Score 5 min: 9 Complications: None Other Complications: CPAP x 13 min. Rubi 20 mls
== END 2020-08-07 13:40 | disposition home or self-care (01) | DRG 788 ==
LOC: OB 05:01 → MS 08-05 13:28
PROVIDERS: ADMIT Obstetrics & Gynecology; ATTEND Obstetrics & Gynecology